=== PATIENT | male | born 1970 | race Caucasian/White ===

== ENCOUNTER 2019-06-22 01:52 | Emergency (ER) | payer OTHER ==
[~2019-06-22] VITALS: Ht 182.9 cm; Wt 100.0 kg
[2019-06-22] MEDS ORDERED: KETOROLAC 30 MG/1 ML ONE (02:14)
[2019-06-22 02:25] LABS: BASOPHILS # (AUTO) 0.03 x10^3/uL (0-0.1); BASOPHILS % (AUTO) 0 % (0-1); EOSINOPHILS # (AUTO) 0.13 x10^3/uL (0-0.4); EOSINOPHILS % (AUTO) 1 % (1-7); LYMPHOCYTES # (AUTO) 2.66 x10^3/uL (1-3.4); LYMPHOCYTES % (AUTO) 29 % (22-44); MD NO; MEAN CORPUSCULAR HEMOGLOBIN 30.5 pg (27.5-34.5); MEAN CORPUSCULAR HGB CONC 33.8 g/dL (33.2-36.2); MEAN CORPUSCULAR VOLUME 90.1 fL (81-97); MEAN PLATELET VOLUME 9.1 fL (7.4-10.4); MONOCYTES # (AUTO) 0.42 x10^3/uL (0.2-0.8); MONOCYTES % (AUTO) 5 % (2-9); NEUTROPHILS # (AUTO) 5.93 x10^3/uL (1.8-6.8); NEUTROPHILS % (AUTO) 65 % (42-75); PLATELET COUNT 193 x10^3/uL (130-400); RED BLOOD COUNT 5.16 x10^6/uL (4.38-5.82); RED CELL DISTRIBUTION WIDTH 12.8 % (9.4-14.8)
[2019-06-22] MEDS ORDERED: KETOROLAC 30 MG/1 ML IVPush ONE (02:30)
--- NOTE | 2019-06-22 02:30 | NUR ---
Assist RN: patient medicated for pain.
[2019-06-22 02:35] LABS: ALBUMIN 3.8 g/dL (3.4-5.0); ANION GAP 9 mmol/L (5-15); CALCIUM 8.4 mg/dL (8.5-10.1); CHLORIDE 112 mmol/L (98-107); CREATININE 1.19 mg/dL (0.7-1.3)
[2019-06-22] MEDS ORDERED: PLEASE ENTER ALLERGIES MC SCH (03:00)
[2019-06-22] MEDS ORDERED: HYDROmorphone 1 MG/ML, 1ML VIAL ONE (03:37)
--- NOTE | 2019-06-22 03:46 | NUR ---
PT REQUESTING PAIN MEDS. STATES UNBEARABLE. AWARE. MED PER MAR. PT URGED TO URINATE, UNABLE TO PROVIDE SAMPLE AT THIS TIME.
[2019-06-22] MEDS ORDERED: HYDROmorphone 1 MG/ML, 1ML INJ IV ONE (04:00)
[2019-06-22 04:42] LABS: MICROSCOPIC NOT IND
[2019-06-22 04:49] LABS: CULTURE INDICATED? NO
[2019-06-22 05:36] VITALS: BP 135/78
== END 2019-06-22 05:38 | disposition home or self-care (01) ==
LOC: ED 03:24
DX: N23 Unspecified renal colic (principal)
CPT/HCPCS: 36415; 76770; 80048; 81003; 82040; 85025; 96374; 96375; 99284; J1170; J1885